=== PATIENT | female | born 1960 | race Caucasian/White ===

== ENCOUNTER → 2017-02-22 | Outpatient (CLI) | payer BC | LOC: COL.LAB 12:50 | DX: Z01.818 Encounter for other preprocedural examination (principal); M16.11 Unilateral primary osteoarthritis, right hip ==

== ENCOUNTER → 2024-07-05 | Outpatient (CLI) | payer BC ==
[~2024-07-05] MED LIST: ASPI325T6 PO; CALTRATE-600 W600 MG PO; CEPHALEXIN500 M1 PO; COMPLETE MULTI1 TAB PO; CRESTOR 10MG10 MG PO; DAZIDOX10 MG PO; DECADRON OPHTH D5 ML OT; ESTRACE2 MG PO; FLEXERIL 1010 MG/TAB PO; FOLIC ACID 40400 MCG PO; HAIRSKINNAILS PO; HCTZ 25MG TAB25 MG PO; IFEREX 150150 MG PO; LIDODERM 5% PATC1 EA TP; LIORESAL 1010 MG/TAB PO; MOBIC15 MG PO; NEURONTIN100 MG/CAP PO; NEURONTIN300 MG/CAP PO; NORVASC 5MG5 MG/TAB PO; TRIAMC 0.1 454 TOP; TYLENOL 8 HR PO; ULTRAM 50MG TAB50 MG PO; VITAMINC1000TA; VITAMIND3 5000 PO
== END ==
LOC: COL.RAD 09:43
DX: K21.9 Gastro-esophageal reflux disease without esophagitis (principal)